=== PATIENT | male | born 1980 | race African-American/Black ===

== ENCOUNTER 2023-06-13 13:04 | Emergency (ER) | payer MEDICAID, SELFPAY ==
[2023-06-13 13:06] VITALS: BP 144/86; PULSE 53; RESP 18; TEMP 35.5; O2SAT 100
--- NOTE | 2023-06-13 13:24 | EKG12_ITS ---
Test Reason : NAUSEA Blood Pressure : / mmHG Vent. Rate : 050 BPM Atrial Rate : 050 BPM P-R Int : 174 ms QRS Dur : 100 ms QT Int : 408 ms P-R-T Axes : 038 062 049 degrees QTc Int : 371 ms Sinus bradycardia Minimal voltage criteria for LVH, may be normal variant ( Sokolow-Galvan ) Borderline ECG Confirmed by BORIS LINTON, DAVID ([id number]), news video editor KALANI BREEN ([id number]) on 06/15/2023 8:52:11 AM Referred By: Confirmed By:IKER ESCALANTE MD
--- NOTE | 2023-06-13 13:26 | NURSING ---
NO OLD EKGS
[2023-06-13 13:38] VITALS: BMI 27.5
[2023-06-13 13:52] VITALS: TEMP 36.7
--- NOTE | 2023-06-13 14:03 | EX.ED.DYSGE1 ---
HPI History of Present Illness Chief Complaint: Nausea/Vomiting Informant: patient Narrative Narrative: Patient is a 42-year-old male with history of daily marijuana use, vitamin D deficiency and pancreatitis presenting with nausea and vomiting. He denies any associate abdominal pain. He states his symptoms started last night but of really been bad today. Patient notes that hot showers do help his symptoms. He states he also has a lot of chills and feels hot and cold. He states he gets episodes like this every 6 to 7 months. He denies any black or blood in his vomit or stool. He notes his throat will softer today but denies any diarrhea. Denies any history of any abdominal surgeries. Denies associated chest pain, shortness of breath or sick contacts. No other complaints or concerns at this time. States he has been told he needs to follow-up with GI but has not been able to. [facility] Medical History Pancreatitis Vitamin D deficiency Home Medications famotidine 20 mg tablet (Pepcid) 20 mg PO BID #30 tabs 06/13/23 [Rx Last Taken Unknown] ondansetron 4 mg disintegrating tablet 4 mg PO Q6H PRN nausea and vomiting #20 tabs 06/13/23 [Rx Last Taken Unknown] Allergy/AdvReac Type Severity Reaction Status Date / Time No Known Allergies Allergy Verified 06/13/23 13:39 Social History Smoking Status: Former smoker ROS ROS ED Constitutional Constitutional ED: Reports chills; Denies fever(s) Cardiovascular Cardiovascular: Denies chest pain Respiratory/Chest Respiratory/Chest: Denies cough Gastrointestinal Gastrointestinal: Reports nausea and vomiting; Denies abdominal pain, constipation, diarrhea or melena Genitourinary Genitourinary ED: Denies dysuria or hematuria Musculoskeletal Musculoskeletal: Denies arthralgias or myalgias Integumentary Denies rash Neurologic Neurologic: Denies headache(s) EXAM Physical Exam Const Vital Signs: 06/13/23 13:06 06/13/23 13:52 Temperature 96 F L 98.1 F Temperature Source Temporal Oral Pulse Rate 53 L Respiratory Rate 18 Blood Pressure 144/86 H Blood Pressure Mean 105 Pulse Ox 100 Oxygen Delivery Method Room Air Positive well nourished and well developed General Appearance ED: well developed and NAD HEENT Reports moist mucous membranes Eyes PERRL and EOMs intact bilaterally Neck supple Chest Wall inspection of chest normal and palpation of chest normal Resp normal respiratory effort and clear to auscultation bilaterally Cardio regular rate, regular rhythm and no murmurs GI normal to inspection, nondistended, normoactive bowel sounds and non-tender Extremity normal to inspection Neuro oriented x3 Sensorium / Orientation: alert Motor Exam: general weakness Psych mental status grossly normal Skin no rashes or lesions noted and no wounds MDM MDM MDM Narrative Medical decision making narrative: Patient is evaluated for 1 day of nausea and vomiting. He has chills but no abdominal pain. Has a history of heavy daily marijuana use. Symptoms improved with heat. Concern for cyclic vomiting syndrome. Also has a history of pancreatitis however as he does not have pain I think this is less likely. At he is afebrile in the emergency room. He has a mild white blood cell count of 12.6 with this could be reactive. Abdomen is soft and nontender in the emergency room. He is bradycardic however patient states has been told he is bradycardic in the past. His normal blood pressure. No signs of any block on his EKG. I do not think his nausea and vomiting is referred cardiac symptoms I do not think he needs further cardiac work-up as he has no ischemic changes on his EKG. Patient is given IV Zofran and fluids. He is some improvement of symptoms but is continue to be nauseous. He is then given so dose of IV Haldol. He has 1 episode of vomiting after this but states he is actually feeling better. Is then dosed with IV Reglan and Pepcid. Patient states he is feeling better. Is given a p.o. challenge. Patient does have a mildly elevated lipase but given that he is symptom control I do not think he needs admission for pancreatitis. I do not think this is true pancreatitis but more reactivity associate with his vomiting given his lack of abdominal pain. Patient is given return precautions to the emergency room. Encouraged on the importance of following up with PCP/GI. Is given referral to GI as well as general surgery for possible endoscopy. Is counseled the importance of refraining from marijuana use in cases of cyclic vomiting/cannabis hyperemesis syndrome. Will be started on PPI and given a prescription for Zofran. Encouraged to return the emergency room should he have worsening of his symptoms. Lab Data Attestation: I reviewed the patient's lab results. Rhythm Strip Rhythm Strip: Sinus Rhythm Rate: 50 Ectopy: None EKG Initial EKG: Attestation: I personally reviewed and interpreted this EKG as follows: Interpretation: Sinus Bradycardia Comments: Sinus bradycardia at a rate of 50 bpm Normal axis Normal intervals Minimal voltage criteria for LVH but could be normal variant Normal ST segments No prior EKG available for comparison Discharge Plan Triage Chief Complaint: Nausea/Vomiting Other Complaint: Cold Sx ED Provider: Mary Read Dx/Rx/DC Orders Clinical Impression: Cannabis dependence, daily use, Elevated lipase, Nausea & vomiting Instructions: ED Cyclic Vomiting Syndrome, ED Vomiting (Adult) Prescriptions: New famotidine [Pepcid] 20 mg tablet 20 mg PO BID Qty: 30 0RF ondansetron 4 mg tablet,disintegrating 4 mg PO Q6H PRN (Reason: nausea and vomiting) Qty: 20 0RF Primary Care Provider: Jaimee Castle,Out of Referrals: Magdi Danielle MD [Med Staff - Active Staff] - As Needed FriendAbe DO [Med Staff - Active Staff] - As soon as possible [facility] Doctor,Out of [Primary Care Provider] - Activity Restrictions/Additional Instructions: Stick to a liquid diet for the next 24 hours. Avoid any marijuana use as this could actually worsening your symptoms/causing him. Take medication as prescribed. Please follow-up with a water leak repairer (stomach specialist). Return to the ER if you have a progression or worsening your symptoms or further concerns. Disposition Disposition: Home, Self Care
[2023-06-13 14:18] LABS: Absolute Lymphocyte Count 1.88 X10^3/uL (0.83-4.51); Absolute Neutrophil Count 10.2 X10^3/uL (2.0-7.7); Basophil# 0.07 X10^3/uL; Basophil% 0.6 % (0-1); Eosinophil# 0.02 X10^3/uL; Eosinophils% 0.2 % (0-5); Hematocrit 49.6 % (40-54); Hemoglobin 16.3 g/dL (13.0-16.5); Lymphocyte # 1.88 X10^3/ul (0.83-4.51); Mean Corp Hgb Conc 32.9 g/dL (32-36); Mean Corpuscular Hgb 30.1 pg (27.0-32.0); Mean Corpuscular Volume 91.7 fL (80-94); Mean Platelet Vol. 9.2 fl (6.2-12.0); Monocyte% 2.4 % (0-10); NRBC Flagged by Analyzer 0 % (0-5); Neutrophil # 10.23 X10^3/uL (2.7-7.7); Neutrophil % 81.2 % (47-70); Platelet Count 262 K/mm3 (150-450); RBC Distribution Width CV 12.9 % (11.6-14.6); Red Blood Count 5.41 M/mm3 (4.6-6.2); White Blood Count 12.6 K/mm3 (4.4-11.0)
[2023-06-13] MEDS: Ketorolac 15 MG/ML Vial IV (14:18)
[2023-06-13] MEDS: 0.9% Normal Saline 1,000 ML 999 ML IV (14:18)
[2023-06-13] MEDS: Ondansetron 4 MG/2 ML Vial IV (14:18)
[2023-06-13 14:23] LABS: AST(SGOT) 15 U/L (15-37); Alanine Aminotransfer ALT/SGPT 20 U/L (16-61); Albumin, Serum 4.1 g/dL (3.2-5.0); Alkaline Phosphatase 87 U/L (45-117); Anion Gap 3 (5-15); BUN 7 mg/dL (7-18); BUN/Creat Ratio 5.6 RATIO (10-20); Calcium,Total 9.2 mg/dL (8.5-10.1); Chloride 110 mmol/L (98-107); Creatinine, Serum 1.24 mg/dL (0.70-1.30); EST Glomerular Filtration Rate 68 mL/min (>60); Est Glom Filt Rate - Afr Amer 82 mL/min (>60); Estimated Creatinine Clearance 67.51 ml/min; Globulin 4.3 g/dL (2.2-4.2); Glucose 122 mg/dL (74-106); Lipase 220 U/L (13-75); Potassium 3.9 mmol/L (3.5-5.1); Protein, Total 8.4 g/dL (6.4-8.2); Sodium Level 140 mmol/L (136-145)
[2023-06-13 15:32] VITALS: BP 150/80; PULSE 51; RESP 10; O2SAT 100
[2023-06-13] MEDS: Haloperidol Lactate 5 MG/ML Vial 1 MG IV (15:33)
[2023-06-13 15:48] VITALS: BP 130/77; PULSE 67; RESP 27; O2SAT 100
[2023-06-13] MEDS: Metoclopramide 10 MG/2 ML Vial 5 MG IV (16:31)
[2023-06-13] MEDS: Famotidine 200 MG/20 ML MDV 20 MG in 0.9% Normal Saline (Pres. free 8 ML 300 MG IV (16:31)
[2023-06-13 17:04] VITALS: BP 141/76; PULSE 51; RESP 25; O2SAT 100
[2023-06-13 17:22] VITALS: BP 126/66; PULSE 64; RESP 14; O2SAT 100
== END 2023-06-13 17:26 | disposition home or self-care (01) ==
PROVIDERS: Emergency Provider Emergency Medicine; Visit Provider Emergency Medicine
DX: R11.2 Nausea with vomiting, unspecified (principal); R74.8 Abnormal levels of other serum enzymes; F12.90 Cannabis use, unspecified, uncomplicated; Z87.891 Personal history of nicotine dependence
CPT/HCPCS: 80053; 83690; 85025; 93005; 96361; 96374; 96375; 99285; J7030; J7050; A4216; J2405; J3490